=== PATIENT | female | born 1960 | race Caucasian/White ===

== ENCOUNTER → 2016-03-16 | Outpatient (CLI) | payer OTHER ==
[2016-03-16 12:01] LABS: ASPARTATE AMINO TRANSFERASE 44 IU/L (8-39); BILIRUBIN,TOTAL 0.6 mg/dL (0.3-1.2); BLOOD UREA NITROGEN 11 mg/dL (7-22); BUN/CREATININE RATIO 18.33 (6-20); CALCIUM 9.7 mg/dL (8.7-10.7); CHLORIDE 104 meq/L (98-112); CREATININE 0.6 mg/dL (0.50-1.20); EST GLOMERULAR FILTRATION > 60 (>60 ml/min/1.73m(2)); GLUCOSE 81 mg/dL (78-110); POTASSIUM 4.7 meq/L (3.8-5.2); SODIUM 139 meq/L (135-145); TOTAL PROTEIN 7.6 g/dL (6.1-8.0)
[2016-03-16 14:22] LABS: FREE T4 (FREE THYROXINE) 1.02 ng/dL (0.93-1.71)
== END ==
LOC: MOB LAB 09:35
PROVIDERS: ATTEND Student in an Organized Health Care Education/Training Program
DX: E03.9 Hypothyroidism, unspecified (principal); R94.5 Abnormal results of liver function studies
CPT/HCPCS: 36415; 80053; 84439; 84443

== ENCOUNTER → 2016-05-24 | Outpatient (CLI) | payer OTHER ==
--- NOTE | 2016-05-24 10:34 | DI ---
XR ANKLE COMPLETE MIN 3VW,05/24/2016 9:43 AM: Clinical History: Left ankle pain. Previous Exam: None at this facility. Findings: 3 views the left ankle are obtained, and demonstrate anatomic alignment without fractures. The surrou nding soft tissues are unremarkable. Impression: Normal left ankle.
== END ==
LOC: ORTHO 09:51
PROVIDERS: ATTEND Physician Assistant
DX: M25.572 Pain in left ankle and joints of left foot (principal); S93.432A Sprain of tibiofibular ligament of left ankle, initial encounter; X50.1XXA Overexertion from prolonged static or awkward postures, initial encounter
CPT/HCPCS: 73610

== ENCOUNTER → 2016-06-15 | Outpatient (CLI) | payer OTHER ==
[2016-06-15 12:03] LABS: HEMATOCRIT 48.6 % (37.0-47.0); HEMOGLOBIN 15.5 g/dL (12.0-16.0); MEAN CORPUSCULAR HEMOGLOBIN 29.3 PG (27-31); MEAN CORPUSCULAR HGB CONC 31.9 g/dL (33-37); MEAN CORPUSCULAR VOLUME 91.9 FL (81-99); MEAN PLATELET VOLUME 11.6 FL (7.4-12.2); RED BLOOD COUNT 5.29 10^6/uL (4.20-5.40)
[2016-06-15 12:12] LABS: BLOOD UREA NITROGEN 14 mg/dL (7-22); CALCIUM 9.8 mg/dL (8.7-10.7); EST GLOMERULAR FILTRATION > 60 (>60 ml/min/1.73m(2)); GAMMA GLUTAMYL TRANSPEPTIDASE 18 IU/L (8-78); SERUM ALBUMIN 4.2 g/dL (3.5-4.8)
[2016-06-18 16:41] LABS: ALK PHOS ISOENYZ: LIVER 2 % 11.9 % (0.0-8.0); ALK PHOS ISOENYZ: LIVER1 % 51.8 % (27.8-76.3); ALK PHOS ISOENYZMES: BONE% 36.3 % (19.1-67.7)
== END ==
LOC: MOB LAB 09:25
PROVIDERS: ATTEND Student in an Organized Health Care Education/Training Program
DX: R74.8 Abnormal levels of other serum enzymes (principal); Z90.81 Acquired absence of spleen; E55.9 Vitamin D deficiency, unspecified; Z98.890 Other specified postprocedural states
CPT/HCPCS: 36415; 80053; 82306; 82977; 84075; 84080; 85027

== ENCOUNTER → 2016-06-21 | Outpatient (CLI) | payer OTHER ==
--- NOTE | 2016-06-21 10:43 | DI ---
LEFT ANKLE, 06/21/2016 9:21 AM: Clinical History: Left ankle pain. Previous Exam: 05/24/2016. 3 views are submitted. There is no acute soft tissue, osseous, or joint abnormality. Reading: Normal left ankle exam. There has been no interval change.
== END ==
LOC: ORTHO 09:35
PROVIDERS: ATTEND Physician Assistant
DX: M25.572 Pain in left ankle and joints of left foot (principal); S93.412D Sprain of calcaneofibular ligament of left ankle, subsequent encounter
CPT/HCPCS: 73610

== ENCOUNTER → 2016-08-02 | Outpatient (CLI) | payer OTHER ==
--- NOTE | 2016-08-02 12:05 | DI ---
XR ANKLE COMPLETE MIN 3VW,08/02/2016 9:27 AM: Clinical History: Calcaneal fibular ligament left ankle sprain. Previous Exam: June 21, 2016 Findings: 3 views of the left ankle are obtained, and demonstrate anatomic alignment without fractures. There i s some mild soft tissue swelling. There are some venous calcifications within the anterior soft tissues as well. There is questionable widening of the medial mortise. Impression: No significant change of the prior exam.
== END ==
LOC: ORTHO 09:33
PROVIDERS: ATTEND Physician Assistant
DX: M25.572 Pain in left ankle and joints of left foot (principal); S93.412D Sprain of calcaneofibular ligament of left ankle, subsequent encounter
CPT/HCPCS: 73610

== ENCOUNTER → 2016-08-14 | Outpatient (CLI) | payer OTHER ==
--- NOTE | 2016-08-14 13:00 | DI ---
MRI LOW EXTREMITY JNT W/O CN,08/14/2016 8:17 AM: Clinical History: Left ankle injury. Previous Exam: None at this facility. Findings: Multiplanar MR images are obtained through the left ankle without contrast. Bony alignment is anatomi c. No fractures are seen. Marrow signal is preserved. The subtalar joints are unremarkable. The talar dome is also unremarkable. The calcaneocuboid joint is normal. The peroneal tendons are unremarkable. There is a small amount of fluid surrounding the synovial overton th of the flexor hallucis longus tendon. The posterior tibialis and flexor digitorum longus tendons are intact. Signal within the musculature is unremarkable to include signal within the muscle body of the flexor hallucis longus. The subcutaneous fat is unremarkable. There is no ankle joint effusion. The overlying subcutaneous fat is unremarkable. The Achilles tendon is normal. The plantar fascia is also unremarkable. Impression: Trace amount of fluid surrounding the flexor hallucis longus tendon most consistent with tenosynoviti s of the tendon.
== END ==
LOC: MRI 08:13
PROVIDERS: ATTEND Physician Assistant
DX: M25.572 Pain in left ankle and joints of left foot (principal); S93.492A Sprain of other ligament of left ankle, initial encounter
CPT/HCPCS: 73721

== ENCOUNTER 2016-09-04 14:28 | Emergency (ER) | payer OTHER ==
[2016-09-04 14:51] VITALS: RESP 16; TEMP 97.9
[2016-09-04] MEDS ORDERED: NORMAL SALINE 10 ML SYRINGE FLUSH IVP PRN (15:00)
[2016-09-04] MEDS ORDERED: Sodium Chloride 0.9% 1,000 ML PRIMARY IV ONE (15:00)
[2016-09-04 15:23] LABS: BASOPHILS # (AUTO) 0.05 10*3/UL; BASOPHILS % (AUTO) 0.7 % (0-1); EOSINOPHILS # (AUTO) 0.04 10*3/UL; EOSINOPHILS % (AUTO) 0.6 % (0-8); HEMATOCRIT 46.8 % (37.0-47.0); HEMOGLOBIN 15.1 g/dL (12.0-16.0); LYMPHOCYTES # (AUTO) 2.08 10*3/uL; MEAN CORPUSCULAR HEMOGLOBIN 29.1 PG (27-31); MEAN CORPUSCULAR HGB CONC 32.3 g/dL (33-37); MEAN CORPUSCULAR VOLUME 90.2 FL (81-99); MEAN PLATELET VOLUME 10.1 FL (7.4-12.2); MONOCYTES # (AUTO) 0.45 10*3/UL (0.3-0.8); MONOCYTES % (AUTO) 6.6 % (5-15); NEUTROPHILS # (AUTO) 4.24 10*3/UL; NEUTROPHILS % (AUTO) 61.7 % (50-80); RED BLOOD COUNT 5.19 10^6/uL (4.20-5.40)
[2016-09-04 15:30] LABS: PLATELET MORPHOLOGY COMMENT NORMAL MORPHOLOGY (NORM); RBC MORPHOLOGY COMMENT NORMAL MORPHOLOGY (NORM); WBC MORPHOLOGY COMMENT NORMAL MORPHOLOGY (NORM)
[2016-09-04 15:32] LABS: BLOOD UREA NITROGEN 16 mg/dL (7-22); CALCIUM 9.2 mg/dL (8.7-10.7); EST GLOMERULAR FILTRATION > 60 (>60 ml/min/1.73m(2)); LIPASE 227 IU/L (23-300); SERUM ALBUMIN 4.2 g/dL (3.5-4.8)
[2016-09-04 15:50] LABS: BILIRUBIN,URINE NEGATIVE (NEG); CLARITY,URINE CLEAR (CLEAR); COLOR,URINE YELLOW; GLUCOSE, URINE (UA) NEGATIVE (NEG); NITRATE,URINE NEGATIVE (NEG); OCCULT BLOOD,URINE NEGATIVE (NEG); PH,URINE 6.5 (5.0-8.5); PROTEIN,URINE NEGATIVE (NEG); UROBILINOGEN,URINE 0.2 EU/dL (0.2)
[2016-09-04 15:51] LABS: URINE SAMPLE TYPE CLEAN CATCH URINE
--- NOTE | 2016-09-04 16:08 | DI ---
CT ABDOMEN SCAN WITHOUT IV CONTRAST, 09/04/2016 3:02 PM : Clinical History: Abdominal pain. Previous Exam: None at this facility. Scans are performed from the lower lung bases through the liver and kidneys without IV contrast. Sagi ttal and coronal reformatted images are generated. The lung bases are clear. The liver is normal. The patient is status post cholecystectomy and the com mon bile duct measures less than 3 mm in diameter. The pancreas itself appears normal although there is calcification located superior to the tail of the pancreas. There is a second linear band of calci fication extending from the inferior margin of the distal body of the pancreas coursing over the ante rior margin of the left kidney. These calcifications may be related to a previous episode of pancreat itis. Both kidneys are normal in size, shape, position and contour. There is no hydronephrosis or hyd roureter. No renal or ureteral calculi are present. There are no abnormal retrocrural or periaortic n odes. No ascites is present. READIN. There are calcifications adjacent to the tail of the pancreas and over the anterior aspect of the left kidney. Because of the proximity to the pancreas, they may represent calcifications related to a previous episode of pancreatitis. The pancreas itself appears normal. 2. The remainder of the exam is normal. CT PELVIS SCAN WITHOUT IV CONTRAST, 09/04/2016 3:02 PM : Clinical History: See above. Previous Exam: None. Scans are performed from the inferior margin of the liver and kidneys to the symphysis pubis without IV contrast. There is no free fluid collection and there is no adenopathy. The appendix is not visualized but ther e is no inflammatory mass either in the cecal tip or in the right lower quadrant. The small bowel, te rminal ileum, and ileocecal valve are normal. The colon is also normal. There is a small umbilical he rnia through which only mesenteric fat has herniated. The ovaries and uterus are atrophic but normal. READING: Normal CT pelvis scan.
--- NOTE | 2016-09-04 23:51 | PDOC ---
Abdomen/Flank HPI - General Chief Complaint: Abdomen Pain Stated Complaint: RLQ PAIN Date Seen by Provider: 09/04/16 Time Seen by Provider: 14:45 Source: POSITIVE: Patient Exam Limitations: POSITIVE: No limitations Nurse's Notes Reviewed & Considered: Yes - History of Present Illness Initial Comments: The patient is a 56-year-old female. She states that since 8 AM this morning she has had intermittent episodes of "sharp pains" over the right lower abdomen. No known fevers. No chills. No nausea, vomiting, diarrhea, melena, hematochezia, hematemesis or hematuria. She states that she's had a cholecystectomy. 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 She last ate at 11 AM. She does not smoke or drink alcohol. Body Location Affected: REPORTS: Abdomen Timing: REPORTS: Abrupt, Intermittent Duration: <24 hours (6-1/2 to 7 hours) Severity: Moderate Quality: REPORTS: Cramping Abdominal Pain Onset Location: REPORTS: RLQ Abdominal Pain Radiation: REPORTS: No radiation Context: REPORTS: None Modifying Factors: improves with: Nothing Associated Symptoms: REPORTS: Denies symptoms Similar Symptoms Previously: No Recent Care Received: REPORTS: Denies Any Prior Injuries Related to Current Complaint?: No - Patient Home Medications Home Medications: Home Medications Albuterol Sulfate [Ventolin Hfa] 1 - 2 puff INH Q4-6H PRN #1 puff 03/16/16 Quetiapine Fumarate [Seroquel] 25 mg PO QHS tab 03/16/16 Ibuprofen 1 tab PO Q8H PRN #60 tab 06/15/16 Budesonide/Formoterol Fumarate [Symbicort] 2 puff INH BID #1 inh 06/29/16 Pantoprazole Sodium 40 mg PO DAILY 09/04/16 - Patient Allergies Allergies/Adverse Reactions: Allergies Allergy/AdvReac Type Severity Reaction Status Date / Time No Known Allergies Allergy Verified 09/04/16 14:42 Past Medical History - heen HEENT History: Denies History Cardiovascular History: Denies History Respiratory History: Asthma Gastrointestinal History: GERD Additional Gastrointestinal History: GASTRIC ULCERS. DIVERTICULOSIS Genitourinary History: Denies History Endocrine History: Denies History Musculoskeletal History: Arthritis Additional Musculoskeletal History: OSTEOPENIA Neurological History: Frequent Headaches Blood Disorders: Anemia Additional Blood Disorders History: AUTOIMMUNE HEMOLYTIC ANEMIA S/P SPLENECTOMY Psychiatric History: Depression, Bi Polar Disorder, Schizophrenia, Anxiety Disorders, PTSD History of Sexually Transmitted Diseases: No Female Reproductive History: Denies History Obstetrical History: Denies History Cancer History: Denies History In Past Year Been Physically Harmed or Verbally Threatened: No History of MDRO: No History of Other Communicable Diseases: No Tobacco Use: Never Smoker Alcohol Use: None Substance Use Type: Cocaine Previous Surgical History: Yes Type / Date of Surgery: BONE MARROW BX X 3/ NIA/ COLONOSCOPY/ EGD/ SPLENECTOMY FOR BENIGN TUMOR/ TONSILLECTOMY Anesthesia Reactions: No Malignant Hyperthermia: No Significant Family History: Cancer, Diabetes Past Medical History Reviewed: Reviewed - No Changes ROS - Limitations ROS Limitations: No Limitations Constitution: REPORTS: Denies Symptoms Cardiovascular: REPORTS: Denies Cardiac Symptoms Respiratory: REPORTS: Denies Resp Symptoms Neurological: REPORTS: Denies Neuro Symptoms Gastrointestinal: REPORTS: Abdominal Pain Endocrine: REPORTS: Denies Symptoms Musculoskeletal: REPORTS: Denies MS Symptoms Genitourinary: REPORTS: Denies Symptoms Eyes: REPORTS: Denies Symptoms ENT: REPORTS: Denies Symptoms Skin: REPORTS: Denies Skin Symptoms Lympathic: REPORTS: Denies Lympathic Symptoms Immunologic: POSITIVE: Denies Symptoms Psychiatric: POSITIVE: Denies Psych Symptoms Abdominal/Flank Pain PE - General Appearance General Appearance: POSITIVE: Alert, Cooperative, No Acute Distress, No Evidence of Trauma - HEENT HEENT: POSITIVE: Head Inspection Nml, Eyes Inspection Nml, Ears Inspection Nml, Nose Inspection Nml, Oral/Dental Inspect. Nml, Pharynx Inspect. Nml, PERRL, EOMI - Neck Neck: POSITIVE: Normal Inspection, No Apparent Injury - Respiratory Respiratory: POSITIVE: No Respiratory Distress, Breath Sounds Normal, Chest Non- Tender - Cardiovascular Cardiovascular: POSITIVE: Regular Rate and Rhythm, Heart Sounds Normal, Equal Pulses, Strong Pulses Peripheral Pulses: Radial (R): 2+, Radial (L): 2+ - Chest Chest: POSITIVE: Non Tender - Abdomen Abdomen: Soft: (All Quadrants), Normal Bowel Sounds: (All Quadrants), Denies Tenderness: (LLQ), (LUQ), (RUQ), No Splenomegaly: (All Quadrants), No Hepatomegaly: (All Quadrants), No Guarding: (All Quadrants), No Rebound: (All Quadrants), No Palpable Pulse: (All Quadrants), No Palpabale Mass: (All Quadrants), No Distention: (All Quadrants), No Rigidity: (All Quadrants), Tenderness Noted: (RLQ) Additional Abdominal Details: Abdominal examination shows bowel sounds to be active. Patient does express some mild discomfort on firm deep direct palpation right lower quadrant, without masses, organomegaly or rebound. Patient states that at this time her discomfort is minimal and has been intermittently present since 8 AM. - Back Back: POSITIVE: Normal Inspection - Skin Skin: POSITIVE: Intact, Normal For Race, Warm, Dry, No Rash - Extremities Extremity: Non-Tender: (All Extremities), Normal ROM: (All Extremities), Normal Inspection: (All Extremities) - Neurological Neurological: POSITIVE: Oriented X3, credit controller Normal As Tested, Motor Normal, Sensation Normal, 5, 6 - Psychological Psychiatric: POSITIVE: Affect Appropriate, Mood Appropriate Images - Complete Complete: 1 - Area of described discomfort Abdomen Progress - Results Reviewed by me Xrays/CTs/US Reviewed by me: Yes Discussed with Radiologist: Yes Radiology Findings: Incidentally noted calcifications in her tail of pancreas; otherwise normal. Lab Results Reviewed: Yes Lab Results:: Laboratory Results 09/04/16 Range/Units 15:16 WBC 6.87 (4.8-10.8) 10^3/uL RBC 5.19 (4.20-5.40) 10^6/uL Hgb 15.1 (12.0-16.0) g/dL Hct 46.8 (37.0-47.0) % MCV 90.2 (81-99) FL MCH 29.1 (27-31) PG MCHC 32.3 L (33-37) g/dL RDW Std Deviation 48.0 (39-50) fL RDW Coeff of [place] 14.7 H (11.5-14.5) % Plt Count 389 H (140-350) 10*3/uL MPV 10.1 (7.4-12.2) FL Immature Gran % (Auto) 0.1 (0-5) % Neut % (Auto) 61.7 (50-80) % Lymph % (Auto) 30.3 (10-50) % [place] % (Auto) 6.6 (5-15) % Eos % (Auto) 0.6 (0-8) % Baso % (Auto) 0.7 (0-1) % Immature Gran # (Auto) 0.01 10*3/UL Neut # (Auto) 4.24 10*3/UL Lymph # (Auto) 2.08 10*3/uL [place] # (Auto) 0.45 (0.3-0.8) 10*3/UL Eos # (Auto) 0.04 10*3/UL Baso # (Auto) 0.05 10*3/UL WBC Morphology Comment Normal morphology (NORM) Plt Morphology Comment Normal morphology (NORM) RBC Morph Comment Normal morphology (NORM) Sodium 139 (135-145) meq/L Potassium 4.3 (3.8-5.2) meq/L Chloride 105 (98-112) meq/L Carbon Dioxide 25 (23-33) meq/L Anion Gap 9 (5-20) BUN 16 (7-22) mg/dL Creatinine 0.8 (0.50-1.20) mg/dL Estimated GFR > 60 (>60 ml/min/1.73m(2)) BUN/Creatinine Ratio 20.00 (6-20) Glucose 101 (78-110) mg/dL Calculated Osmolality 288.0 (267-292) mOsm/kg Calcium 9.2 (8.7-10.7) mg/dL Total Bilirubin 0.5 (0.3-1.2) mg/dL AST 38 (8-39) IU/L ALT 30 (9-52) IU/L Alkaline Phosphatase 134 H (38-126) IU/L Total Protein 8.0 (6.1-8.0) g/dL Albumin 4.2 (3.5-4.8) g/dL Globulin 3.9 (2.50-4.10) g/dL Albumin/Globulin Ratio 1.00 L (1.3-2.0) mg/g Amylase 72 (30-110) U/L Lipase 227 (23-300) IU/L Serum HCG, Qual Positive Ur Collection Type Clean catch urine Urine Color Yellow Urine Clarity Clear (CLEAR) Urine pH 6.5 (5.0-8.5) Ur Specific [place] 1.020 (1.005-1.030) Urine Protein Negative (NEG) mg/dl Urine Glucose (UA) Negative (NEG) mg/dL Urine Ketones Negative (NEG) Urine Occult Blood Negative (NEG) Urine Nitrate Negative (NEG) Urine Bilirubin Negative (NEG) Urine Urobilinogen 0.2 (0.2) EU/dL Ur Leukocyte Esterase Negative (NEG) Ur Culture Indicated? Culture not set - Patient's Progress Pain Medication Addressed: POSITIVE: Not Applicable School/Work Release Addressed: POSITIVE: Not Applicable Re-examine Time: 16:35 Re-Examine Comment: Patient rested comfortably throughout her stay in the emergency room. Status: POSITIVE: Unchanged, Re-Examined - Consult Counseled: POSITIVE: Patient, RE: Lab Results, RE: Radiology Results, RE: DX, RE : Need for F/U Patient Care Time - Estimated PCT Patient Care Time (In Minutes): 60 Vital Signs - VS Reviewed Vital Signs Reviewed: Yes Discharge Clinical Impression: Abdominal pain Discharge Disposition: Discharged to Home Condition: Stable Patient Instructions Given at Discharge: Acute Abdominal Pain (ED) Additional Instructions: I'm not sure why you're having your intermittent abdominal discomfort. Your blood and urine tests and your CT scan of the abdomen and pelvis are all normal. Clear liquid diet for the next 24 hours. Return here anytime if condition worsens. Otherwise follow-up with your primary care provider. Return anytime if condition worsens in any way. Follow Up With: BORIS VENTURA [Primary Care Provider] - (Instructions as above. Follow-up with your primary care provider. Return here as necessary.)
== END 2016-09-04 16:47 | disposition home or self-care (01) ==
LOC: ER 14:28
DX: R10.31 Right lower quadrant pain (principal); R25.2 Cramp and spasm
CPT/HCPCS: 74176; 80053; 81003; 82150; 83690; 84703; 85025; 96360; 99283; J7030